=== PATIENT | female | born 1985 ===

== ENCOUNTER 2017-09-23 02:50 | Inpatient (IN) | payer OTHER ==
[2017-09-23 03:49] VITALS: BMI 40.3
[2017-09-23] MEDS ORDERED: Oxytocin 30 UNITS in Sodium Chloride 0.9% 500 ML IV SCH (04:15)
[2017-09-23] MEDS ORDERED: Lactated Ringer's 1,000 ML IV SCH ×2 (04:15)
[2017-09-23 04:44] VITALS: RESP 17; O2SAT 99
[2017-09-23 04:44] LABS: BASO # 0.1 K/uL (0.0-0.2); BASO % 0.4 % (0.0-2.0); EOS # 0.1 K/uL (0.0-0.7); EOS % 0.7 % (0.0-4.0); HEMATOCRIT 37.4 % (34.0-47.0); LYMPH % 25.7 % (20.0-40.0); MEAN CELL VOLUME 91.5 fl (81.0-99.0); MEAN CORPUSCULAR HEMOGLOBIN 29.7 pg (27.0-31.0); MEAN CORPUSCULAR HGB CONC 32.4 g/dL (33.0-37.0); MEAN PLATELET VOLUME 10.7 fl (7.2-11.7); MONO # 0.6 K/uL (0.0-0.8); MONO % 4.9 % (0.0-10.0); NEUT % 68.3 % (50.0-75.0); RED CELL DISTRIBUTION WIDTH 13.7 % (11.5-14.5); WHITE BLOOD COUNT 11.8 K/uL (4.8-10.8)
[2017-09-23] MEDS ORDERED: Lidocaine 1% Inj (20ml) ONE (05:12)
[2017-09-23] MEDS ORDERED: Oxycodone/Acetaminophen 5/325 mg Tab PO PRN ×4 (05:46→07:55)
[2017-09-23] MEDS ORDERED: Benzocaine/Menthol SPRAY TOP PRN ×2 (05:46→07:55)
--- NOTE | 2017-09-23 06:24 | OBADHP ---
Datetime: 09/23/2017 03:56 Admit Comment, IP Provider: 32 yo at 40 6/7 weeks GA based on LMP 12/11/16, EDC 09/17/17 prese nts w/ cc of ctx q10 min since 11 pm last night. Pt reports ctx is getting stronger. Denies LOF or VB . Reports +FM. Pt is GBS neg. Pt reports last visit at her clinic on 09/21/17 she was 3 cm dilated. De nies nausea, vomiting, headache, dizziness, blurry vision, chest pain or dyspnea. PNC: [facility], Last visit on 09/21/17 PNL: O+, ab neg, GBS neg, hiv neg, rpr neg, gc/c neg, rubella immune, pap: unsatifactory, but HPV+ past ob hx: 1 in 08/2008 at 40 weeks GA, baby wt was 12 lbs 8 oz. Hx LGA. One SAB at 20 week s GA in 2014. 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 Pap on 03/20/17 shows unsatisfactory specimen. US: on 07/27/17 shows fetus at 2027 gm and anterior placena w/o previa. Pt reports most recent US done on 09/19/17( reports not available) shows fetus wt 7 lbs 8 oz. pmh: denies hx DMII. pshx: denies social hx: denies EtOH use, cigarettes smoking or recreational drug use. meds: PNV allergies: levaquin..rash Assessment: 32 yo IUP @ 40 6/7 weeks GA, in active labor Plan: Admit to L_D CBC Type and screen IVF gbs neg Case d/w on-call OB hospitalist Dr. Samuel Patel, PGY1 The patient was seen with the resident and I agree with the note Extremities - PN: Normal Abdomen - PN: Normal Back - PN: Normal Lungs - PN: Normal Heart - PN: Normal Neurologic - PN: Normal HEENT - PN: Normal General - PN: Normal FHR - Baseline A Provider: 130's Membranes, Provider: Intact Comments, ACOG Physical Exam: SVE: 80/-2 (Annotations: Data stored by CPN on behalf of user) Vital Signs Provider: Reviewed IP Chief Complaint: Uterine contractions NICHD Variability Prov Fetus A: Moderate 6-25bpm (Annotations: Data stored by CPN on behalf of user) NICHD Accel Fetus A IP Provider: [id number] FHR Category Provider Fetus A: Category I Dilatation, Provider: 4 Effacement, Provider: 80 Station, Provider: -2 Genitourinary Exam: Normal DTRs - PN: Normal EGA AdmitDate IP: 40.6 IP Adm Impression: Term, intrauterine IP Admit Plan: Admit to unit; Initiate labor protocol
--- NOTE | 2017-09-23 06:24 | OBDS ---
DELIVERY PERSONNEL Delivery Doctor: Anthony Baker MD Transit Coach Operator: Ma. Shabnam Crowe RN Resident: Sultan Patel MD MATERNAL INFORMATION Delivery Anesthesia: Local Estimated Blood Loss (ml): 150 Placenta Cultured: No Maternal Complications: Precipitous Labor (<3hrs) (Annotations: Data stored by N on behalf of user ) Provider Comments: Liver live baby boy at 525 was bulb suctioned on the perineum the transferred to the maternal chest. The cord was clamped and cut and 3 vessels noted cord blood was obtained and sent to lab. The placenta was delivered at 5:33 AM intact. There was a first-degree laceration which was repaired with 2-0 Rapide. The mother tolerated the procedure well the baby went to the [facility] weighing 3215 g with Apgars of 9 and 9 LABOR SUMMARY EDC: 09/17/2017 00:00 No. Babies in Womb: 1 Attempted: No Labor Anesthesia: IV Sedation LABOR INFORMATION Onset of Labor: 09/22/2017 23:35 Complete Dilatation: 09/23/2017 05:00 Group B Beta Strep: Negative Steroids Given: None Reason Steroids Not Administered: Not Applicable MEMBRANES Membranes Rupture Method: Artificial Rupture of Membranes: 09/23/2017 05:23 Length of Rupture (hrs): 0.03 Amniotic Fluid Color: Clear Amniotic Fluid Amount: Small Amniotic Fluid Odor: Normal STAGES OF LABOR Stage 1 hrs: 5 Stage 1 min: 25 Stage 2 hrs: 0 Stage 2 min: 25 Stage 3 hrs: 0 Stage 3 min: 8 Total Time in Labor hrs: 5 Total Time in Labor min: 58 VAGINAL DELIVERY Episiotomy: None Laceration Extension: First Degree Laceration Type: Perineal Laceration Repair: Yes Initial Vag Sponge Count: 5 Final Vag Sponge Count: 5 Initial Vag Sharps Count: 1 Final Vag Sharps Count: 1 Sponge Count Correct: Yes Sharps Count Correct: Yes BABY A INFORMATION Infant Delivery Date/Time: 09/23/2017 05:25 Method of Delivery: Vaginal Born in Route : No : N/A Forceps: N/A Vacuum Extraction: N/A Shoulder Dystocia : No SHOULDER DYSTOCIA BABY A Delivery Date/Time: 09/23/2017 05:25 PRESENTATION/POSITION BABY A Presentation: Cephalic Cephalic Presentation: Vertex PLACENTA INFORMATION BABY A Placenta Delivery Time : 09/23/2017 05:33 Placenta Method of Delivery: Spontaneous Placenta Status: Delivered SCORES BABY A Heart Rate 1 min: >100 bpm Resp Effort 1 min: Good Cry Reflex Irritability 1 min: Cough or Sneeze or Pulls Away Muscle Tone 1 min: Active Motion Color 1 min: Body Miller, Extremities Blue Resuscitation Effort 1 min: Tactile Stimulation SCORE 1 MIN: 9 Heart Rate 5 min: >100 bpm Resp Effort 5 min: Good Cry Reflex Irritability 5 min: Cough or Sneeze or Pulls Away Muscle Tone 5 min: Active Motion Color 5 min: Body Miller, Extremities Blue Resuscitation Effort 5 min: N/A SCORE 5 MIN: 9 INFANT INFORMATION BABY A Gestational Age at Delivery: 40.0 Gestational Status: Term Outcome : Liveborn Condition : Stable Sex: Male IDENTIFICATION/MEDS BABY A ID Band Number: [id number] ID Band Location: Left Leg; Left Arm WEIGHT/LENGTH BABY A Birthweight (gms): 3215 Infant Weight (lb): 7 Infant Weight (oz): 1 CORD INFORMATION BABY A No. Cord Vessels: 3 Nuchal Cord : N/A Cord Blood Taken: Yes Infant Suction: Mouth; Nose
[2017-09-24 08:23] LABS: HEMATOCRIT 30.1 % (34.0-47.0); MEAN CELL VOLUME 90.9 fl (81.0-99.0); MEAN CORPUSCULAR HEMOGLOBIN 30.5 pg (27.0-31.0); MEAN CORPUSCULAR HGB CONC 33.6 g/dL (33.0-37.0); WHITE BLOOD COUNT 13.3 K/uL (4.8-10.8)
--- NOTE | 2017-09-25 10:11 | OBPPN ---
Datetime: 09/25/2017 06:13 PP Pain Prov: Within normal limits PP Nausea Prov: Denies PP Flatus Prov: Yes PP BM Prov: Yes PP Heart Prov: Normal PP Lungs Prov: Normal PP Abdomen/Uterus Prov: Normal PP Lochia Prov: Normal PP CVA Tenderness Prov: Normal PP Extremities Prov: Normal PP Impression Prov: Normal progression PP Plan Prov: Discharge PP Progress Note Prov: 32 yo now seen and examined at bedside this AM. No overnight events. Pt reports mild lower abdominal pain but pain is controlled with pain medications. Pt is ambulating well w/o dizziness. Breast feeding and bottle feeding the baby. Tolerating PO diet. Lochia is similar to light menses in volume. Voiding freely and had BM last night. Denies fever/chills, diarrhea, loi sea/vomiting, chest pain, dyspnea, and dizziness. Physical exam: VS: stable GEN: NAD, comfortably lying in bed. Cardio: RRR, normal S1, S2. Resp: CTA B/L. no wheezing or rhonchi. Abdomen: BS+, NT, Uterus is firm and at the level of the umbilicus. EXT: No edema, calves nontender NEURO/PSYCHI: AAOx3 Assessment: :32 yo now doing well on PPD2. Plan: Discharge to home today PNV 1 PO qdaily Ibuprofen 600 mg 1 tab po q6h prn for moderate/severe pain Feosol 325 mg PO bid Senokot 8.6mg tabs po qhs. Encourage . Ambulation with caution,nothing per vaginal, no heavy lifting. Go to ER if excessive bleeding or experiencing fever, increased perineal or abdominal pain, breast problems or leg pain and swelling. Follow up at your clinic in 4-6 weeks. Sultan Patel PGY1 Agree with Above. Vital Signs Provider PP: Reviewed; Within Normal Limits Datetime: 09/24/2017 08:36 PP Breasts Prov: Not Done PP Vulva/Perineum Prov: Normal PP C/S Incision Prov: Not Applicable PP Progress Prov: Normal IP PP Procedures: None
--- NOTE | 2017-09-25 10:19 | OBDCSUM ---
Datetime: 09/25/2017 06:16 Discharged to, Provider: Home Follow up at, Provider: [facility] Disch Instr Activity: May be up to bathroom; May be up for meals; May Shower Disch Instr Diet: Regular Discharge Instructions, Provider: Routine instructions given Discharge Diagnosis, Provider: Term Delivered Discharge Time: 09/25/2017 10:16 Follow up in weeks, Provider: 4-6 weeks Disch Referrals: None Contraception discussed, Prov: Yes Disch Activity Restrictions: No exercising; No lifting; No sexual activity; Nothing in vagina - Inte rcourse, tampons, douche Discharge Comment, Provider: Take Ibuprofen 600 mg 1 table every 6 hours as needed for pain. Take th food. Take Feosol 325 mg two times daily. Take vitamin daily. Take Senokot 8.6mg tabs at night as needed for constipation. Please follow up with your doctor in 4-6 weeks. Discharge Diagnosis Prov Other: S/P , Clinically Stable Contraception after Delivery: Depo-Provera
[2017-09-25 21:23] VITALS: BP 124/68; PULSE 90; TEMP 98.2
== END 2017-09-25 13:00 | disposition home or self-care (01) | DRG 373 ==
LOC: H.EROB2 02:50 → H.L&D 04:12 → H.OB/GYN 11:30
PROVIDERS: ADMIT Obstetrics & Gynecology Gynecology; ATTEND Obstetrics & Gynecology Gynecology
PROC: 10E0XZZ Delivery of Products of Conception, External Approach (ICD-10-PCS; principal; 2017-09-23)
PROC: 0HQ9XZZ Repair Perineum Skin, External Approach (ICD-10-PCS; 2017-09-23)
PROC: 10907ZC Drainage of Amniotic Fluid, Therapeutic from Products of Conception, Via Natural or Artificial Opening (ICD-10-PCS; 2017-09-23)
PROC: 4A1HXCZ Monitoring of Products of Conception, Cardiac Rate, External Approach (ICD-10-PCS; 2017-09-23)
DX: O48.0 Post-term pregnancy (principal); O62.3 Precipitate labor; O70.0 First degree perineal laceration during delivery; Z3A.40 40 weeks gestation of pregnancy; Z37.0 Single live birth